=== PATIENT | female | born 1960 | race Caucasian/White ===

== ENCOUNTER 2019-05-12 14:21 | Observation (INO) ==
[2019-05-12] MEDS ORDERED: Ipratropium/Albuterol Neb 3 ML IH ONE (14:32)
[2019-05-12 15:07] LABS: Basophils # 0.1 K/mcL (0.0-0.2); Basophils % 0.4 %; Eosinophils # 0.1 K/mcL (0.0-0.6); Eosinophils % 0.6 %; Hematocrit 38.5 % (35.3-44.9); Hemoglobin 13.4 g/dL (11.5-15.4); Immature Granulocytes % 0.4 % (0-4); Lymphocytes # 2.1 K/mcL (0.6-4.6); Lymphocytes % 12.4 %; Mean Corpuscular HGB Conc 34.8 g/dL (31.6-35.5); Mean Corpuscular Hemoglobin 31.4 pg (28.0-33.3); Mean Corpuscular Volume 90.2 fL (83.0-100.0); Mean Platelet Volume 10.2 fL (9.4-12.4); Monocytes % 5.9 %; Neutrophils # 13.4 K/mcL (1.6-8.9); Platelet Count 477 K/mcL (140-400); Red Blood Count 4.27 M/mcL (3.82-4.97); Red Cell Distribution Width 12.6 % (11.5-14.5); Segmented Neutrophils % 80.3 %; White Blood Count 16.7 K/mcL (4.3-11.1)
[2019-05-12 15:28] LABS: BUN/Creatinine Ratio 16 (6-26); Blood Urea Nitrogen 12 mg/dL (6-20); Calcium 9.6 mg/dL (8.6-10.3); Carbon Dioxide 19 mEq/L (23-29); Chloride 102 mEq/L (98-107); Glucose 111 mg/dL (70-105); Osmolality,Calculated 282 (280-300); Potassium 3.4 mEq/L (3.5-5.1); Sodium 136 mEq/L (136-145); eGFR For African Americans > 60 (> 60); eGFR For Non-African Americans > 60 (> 60)
[2019-05-12 15:31] LABS: Troponin I < 0.03 ng/mL (< 0.04)
[2019-05-12] MEDS ORDERED: levoFLOXacin 750 MG/150 ML 750 MG/150 ML BAG IVPB ONE (15:44)
[2019-05-12] MEDS ORDERED: predniSONE 20 MG TABLET PO ONE (15:45)
[2019-05-12] MEDS ORDERED: Naloxone 0.4 MG/ML INJ IVP PRN (16:50)
[2019-05-12] MEDS ORDERED: Ipratropium/Albuterol Neb 3 ML IH PRN (17:13)
[2019-05-12] MEDS: Ipratropium/Albuterol Neb 3 ML IH SCH ×2 (20:05→22:33)
[2019-05-12] MEDS ORDERED: Methylphenidate HCl 10 MG TABLET PO SCH (21:00)
[2019-05-13] MEDS: Ipratropium/Albuterol Neb 3 ML IH SCH ×4 (04:16→21:51)
[2019-05-13] MEDS: levoFLOXacin 750 MG/150 ML 750 MG/150 ML BAG IVPB SCH (07:30)
[2019-05-13] MEDS: BuPROPion XL (24 HR) 150 MG TABLET PO SCH (07:34)
[2019-05-13] MEDS: Tolterodine LA (24 HR) 4 MG CAP.ER.24H PO SCH (07:34)
[2019-05-13] MEDS: FLUoxetine 20 MG CAPSULE PO SCH (07:34)
[2019-05-13] MEDS: predniSONE 20 MG TABLET PO SCH (07:34)
[2019-05-13 08:02] LABS: Basophils % 0.2 %; Eosinophils % 0.1 %; Hematocrit 36.2 % (35.3-44.9); Hemoglobin 12.4 g/dL (11.5-15.4); Immature Granulocytes % 0.7 % (0-4); Lymphocytes # 1.5 K/mcL (0.6-4.6); Lymphocytes % 13.8 %; Mean Corpuscular HGB Conc 34.3 g/dL (31.6-35.5); Mean Corpuscular Hemoglobin 30.8 pg (28.0-33.3); Mean Corpuscular Volume 89.8 fL (83.0-100.0); Mean Platelet Volume 10.4 fL (9.4-12.4); Monocytes # 0.7 K/mcL (0.0-1.3); Monocytes % 6.7 %; Neutrophils # 8.3 K/mcL (1.6-8.9); Platelet Count 502 K/mcL (140-400); Red Blood Count 4.03 M/mcL (3.82-4.97); Red Cell Distribution Width 12.4 % (11.5-14.5); Segmented Neutrophils % 78.5 %; White Blood Count 10.6 K/mcL (4.3-11.1)
[2019-05-13 08:12] LABS: BUN/Creatinine Ratio 14 (6-26); Blood Urea Nitrogen 10 mg/dL (6-20); Calcium 9.8 mg/dL (8.6-10.3); Carbon Dioxide 21 mEq/L (23-29); Chloride 103 mEq/L (98-107); Glucose 107 mg/dL (70-105); Osmolality,Calculated 288 (280-300); Potassium 3.3 mEq/L (3.5-5.1); Sodium 139 mEq/L (136-145); eGFR For African Americans > 60 (> 60); eGFR For Non-African Americans > 60 (> 60)
[2019-05-13 10:54] LABS: Adenovirus Not Detected (Not Detect); Bordetella Pertussis Not Detected (Not Detect); Chlamydophila pneumoniae Not Detected (Not Detect); Coronavirus 229E Not Detected (Not Detect); Coronavirus HKU1 Not Detected (Not Detect); Coronavirus NL63 Not Detected (Not Detect); Coronavirus OC43 Not Detected (Not Detect); Human Metapneumovirus Not Detected (Not Detect); Human Rhinovirus/Enterovirus Not Detected (Not Detect); Influenza A Subtype 2009 H1 Not Detected (Not Detect); Influenza A Untypeable Not Detected (Not Detect); Influenza B Not Detected (Not Detect); Mycoplasma pneumoniae Not Detected (Not Detect); Parainfluenza Virus 1 Not Detected (Not Detect); Parainfluenza Virus 2 Not Detected (Not Detect); Parainfluenza Virus 3 Not Detected (Not Detect); Parainfluenza Virus 4 Not Detected (Not Detect); Respiratory Syncytial Virus Not Detected (Not Detect)
[2019-05-13] MEDS ORDERED: Melatonin 3 MG TABLET PO ONE (20:39)
[2019-05-14] MEDS: Ipratropium/Albuterol Neb 3 ML IH SCH (04:40)
[2019-05-14 07:11] LABS: Basophils # 0.1 K/mcL (0.0-0.2); Basophils % 0.7 %; Eosinophils # 0.1 K/mcL (0.0-0.6); Eosinophils % 0.7 %; Hematocrit 35.2 % (35.3-44.9); Hemoglobin 11.8 g/dL (11.5-15.4); Immature Granulocytes % 0.4 % (0-4); Lymphocytes # 2.9 K/mcL (0.6-4.6); Mean Corpuscular HGB Conc 33.5 g/dL (31.6-35.5); Mean Corpuscular Hemoglobin 31.3 pg (28.0-33.3); Mean Corpuscular Volume 93.4 fL (83.0-100.0); Mean Platelet Volume 10.2 fL (9.4-12.4); Monocytes # 0.9 K/mcL (0.0-1.3); Neutrophils # 7.6 K/mcL (1.6-8.9); Platelet Count 483 K/mcL (140-400); Red Blood Count 3.77 M/mcL (3.82-4.97); Red Cell Distribution Width 12.8 % (11.5-14.5); Segmented Neutrophils % 65.2 %; White Blood Count 11.6 K/mcL (4.3-11.1)
[2019-05-14] MEDS: Tolterodine LA (24 HR) 4 MG CAP.ER.24H PO SCH (07:27)
[2019-05-14] MEDS: FLUoxetine 20 MG CAPSULE PO SCH (07:27)
[2019-05-14] MEDS: predniSONE 20 MG TABLET PO SCH (07:28)
[2019-05-14] MEDS: BuPROPion XL (24 HR) 150 MG TABLET PO SCH (07:28)
[2019-05-14] MEDS: levoFLOXacin 750 MG/150 ML 750 MG/150 ML BAG IVPB SCH (07:28)
[2019-05-14 07:34] LABS: BUN/Creatinine Ratio 21 (6-26); Blood Urea Nitrogen 15 mg/dL (6-20); Calcium 9.4 mg/dL (8.6-10.3); Carbon Dioxide 23 mEq/L (23-29); Chloride 104 mEq/L (98-107); Glucose 90 mg/dL (70-105); Osmolality,Calculated 290 (280-300); Potassium 3.2 mEq/L (3.5-5.1); Sodium 140 mEq/L (136-145); eGFR For African Americans > 60 (> 60); eGFR For Non-African Americans > 60 (> 60)
[2019-05-14 09:57] VITALS: BP 96/57
== END 2019-05-14 11:40 | disposition home or self-care (01) ==
LOC: EMEROOARM 14:21 → 3ANU 14:21 → SUATTDRO 16:10 → 3ANU 17:09
PROVIDERS: ADMIT Internal Medicine; ATTEND Internal Medicine